=== PATIENT | male | born 1960 | race African-American/Black ===

== ENCOUNTER 2021-01-19 23:00 | HOS | payer OTHER, SELFPAY ==
[2021-01-19 22:45] VITALS: BP 104/70; PULSE 124; RESP 20; TEMP 36.6; O2SAT 96; BMI 22.6
[2021-01-19] MEDS: MORPHINE SULFATE (*CRX) 4 MG/ML INJ IV PUSH (23:49)
[2021-01-19] MEDS: MORPHINE SULFATE INJ (*CRX) 50 MG in SODIUM CHLORIDE 0.9% IV 95 ML IV CONT (23:50)
--- NOTE | 2021-01-19 23:58 | PC.NURSE ---
FENTANYL PATCH REMOVED FROM BACK AND DISPOSED OF APPROPRIATELY.
[2021-01-20] MEDS: LORazepam INJ (*CRX) 2 MG/ML VIAL 1 MG IV PUSH ×2 (05:42→10:47)
[2021-01-20 08:00] VITALS: BP 116/81; PULSE 108; RESP 16; TEMP 36.9; O2SAT 100
[2021-01-20 11:16] VITALS: O2SAT 99
--- NOTE | 2021-01-20 16:33 | PM.IMHP ---
H&P: HPI History of Present Illness Date/Time: 01/20/21 16:33 this unfortunate 60-year-old gentleman was diagnosed with lung cancer in December of 2018. He was not a surgical candidate. Underwent chemotherapy. He was admitted to hospice in December 2020. However he discharged himself from hospice and presented to another hospital for treatment. He did suffer a gastrointestinal bleed last month. His condition progressive he was unable to get out of bed on his own. He was living alone and unable to care for himself. Unable to take his medications correctly. Hospice was summoned to readmit him January 19. They found him lying on his couch with pills around him. He was moaning in pain and confused. He was incontinent of bowel and bladder. His PPS score was 30. He was admitted in the evening of January 19 for pain control. At home he was taking extended release morphine 60 mg as well as a fentanyl patch 50 micrograms/hour. He was started on morphine drip at 2 milligrams/hour with 4 mg every 2 hours as needed. He required 1 breakthrough dose of morphine last evening otherwise has had only 2 breakthrough doses of lorazepam for some restlessness this morning. No breakthrough medicine has been required this afternoon. Staff reports he does still grimace 1 touched but when left along his still comfortable. Six months ago he was continent with a fair appetite and living independently. PPS score was 70. He does have a history of alcohol and cocaine use. It is unclear how many days ago he stopped using these substances. He also smokes cigarettes daily. Chief Complaint: uncontrolled pain Review of Systems Review of Systems: ROS unobtainable: Yes unobtainable due to medical condition PMFSH Past Medical History Medical History (Updated 01/20/21 @ 17:13 by Zenon Justice MD) Alcohol use disorder Bipolar disorder Cocaine use disorder GI bleed 12/2020 Seizure Stage 4 malignant neoplasm of lung Tobacco use disorder Type 2 diabetes mellitus with hyperglycemia Family History Family History (Updated 01/20/21 @ 17:04 by Zenon Justice MD) Father No problems noted. Mother Hypertension Social History Social History Gender identity (if verbalized by the patient): Male Spiritual care concerns: No Meds Home Medications and Allergies Home Medications Medication Instructions Recorded Confirmed Type dexamethasone 0.75 mg PO TID 01/20/21 01/20/21 History fentanyl See Rx Instructions .ROUTE .COMPLEX 01/20/21 01/20/21 History levetiracetam 500 mg PO Q12H 01/20/21 01/20/21 History lorazepam 0.5 mg PO Q6H PRN 01/20/21 01/20/21 History megestrol 40 mg PO TID 01/20/21 01/20/21 History morphine 20 mg PO Q4H PRN 01/20/21 01/20/21 History morphine 60 mg PO BID 01/20/21 01/20/21 History omeprazole 20 mg PO QAM 01/20/21 01/20/21 History Allergies Allergy/AdvReac Type Severity Reaction Status Date / Time aspirin Allergy Unknown Verified 01/19/21 23:39 iodine Allergy Unknown Verified 01/19/21 23:39 Vital Signs Vital Signs - 24 hr 01/19/21 22:45 01/20/21 08:00 01/20/21 11:16 Temperature 97.8 F 98.5 F Pulse Rate 124 H 108 H Respiratory Rate 20 16 Blood Pressure 104/70 116/81 Pulse Oximetry 96 100 99 Exam Narrative: Exam Narrative: HEENT: PERRL but miotic and sluggish, sclerae nonicteric, pharyngeal mucosa pink and intact NECK: No JVD, adenopathy, or thyromegaly CHEST: Increased AP diameter with diffuse rhonchi and coarse breath sounds and prolonged expiratory phase HEART: NL S1/S2, regular, no murmur ABDOMEN: BS+, soft, nontender, no mass, no bruits EXTREMITIES: No cyanosis, edema. decreased pedal pulses. Cool extremities. NEUROLOGIC: CN intact and symmetric to inspection. MUSCULOSKELETAL: Tone symmetric. PSYCH: Sleeping. Arouses with grimace to light touch. No response to verbal stimuli. Assessment and Plan Assessment and plan (1) Stage 4 malignant neoplasm of lung:
[2021-01-20] MEDS: methylPREDNISolone SOD SUCC 125 MG VIAL 60 MG IV PUSH (17:44)
[2021-01-20 20:00] VITALS: O2SAT 94
[2021-01-20] MEDS: levETIRAcetam 500MG/NACL 100ML 500 MG/100 ML BAG 400 MG IVPB (21:57)
[2021-01-20 22:00] VITALS: BP 108/87; PULSE 103; RESP 22; TEMP 36.1; O2SAT 96
[2021-01-20] MEDS: MORPHINE SULFATE INJ (*CRX) 50 MG in SODIUM CHLORIDE 0.9% IV 95 ML IV CONT (22:32)
[2021-01-21] MEDS: LORazepam INJ (*CRX) 2 MG/ML VIAL 1 MG IV PUSH ×3 (01:24→10:14)
[2021-01-21 08:00] VITALS: BP 102/74; PULSE 96; RESP 12; TEMP 35.9; O2SAT 100
[2021-01-21] MEDS: MORPHINE SULFATE (*CRX) 4 MG/ML INJ IV PUSH (10:04)
[2021-01-21] MEDS: levETIRAcetam 500MG/NACL 100ML 500 MG/100 ML BAG 400 MG IVPB ×2 (10:12→20:44)
[2021-01-21] MEDS: methylPREDNISolone SOD SUCC 125 MG VIAL 60 MG IV PUSH ×2 (10:13→18:26)
--- NOTE | 2021-01-21 17:01 | PM.IMPN ---
Progress Note: A&P Assessment and Plan (1) Stage 4 malignant neoplasm of lung: Qualifiers: Laterality: unspecified laterality Qualified Code(s): C34.90 - Malignant neoplasm of unspecified part of unspecified bronchus or lung Code(s): C34.90 - Malignant neoplasm of unspecified part of unspecified bronchus or lung Status: Acute Assessment and Plan: Qualifies for general inpatient status on hospice due to uncontrolled pain that requires continuous IV infusion of morphine remainder palliative regimen as ordered, including lorazepam and IV steroids and IV levetiracetam (2) Type 2 diabetes mellitus with hyperglycemia: Qualifiers: Diabetes mellitus long term acute care registered nurse insulin use: with senior living use Qualified Code(s): E11.65 - Type 2 diabetes mellitus with hyperglycemia; Z79.4 - terminal worker (current) use of insulin Code(s): E11.65 - Type 2 diabetes mellitus with hyperglycemia Status: Acute (3) Bipolar disorder: Qualifiers: Active/Remission status: remission status unspecified Qualified Code(s): F31.9 - Bipolar disorder, unspecified Code(s): F31.9 - Bipolar disorder, unspecified Status: Acute (4) Tobacco use disorder: Code(s): F17.200 - Nicotine dependence, unspecified, uncomplicated Status: Acute (5) Seizure: Code(s): R56.9 - Unspecified convulsions Status: Acute (6) Alcohol use disorder: Status: Acute (7) Cocaine use disorder: Code(s): F14.10 - Cocaine abuse, uncomplicated Status: Acute Subjective Date/time seen: 01/21/21 17:01 Interval history: 01/21: Reviewed increased drip to 4mg/hr due to pain, restlessness. More comfortable since. Review of Systems Review of Systems: ROS unobtainable: Yes unobtainable due to medical condition Exam Narrative: Exam Narrative: HEENT: PERRL but miotic and sluggish, sclerae nonicteric, pharyngeal mucosa pink and intact NECK: No JVD, adenopathy, or thyromegaly CHEST: Increased AP diameter with diffuse rhonchi and coarse breath sounds and prolonged expiratory phase HEART: NL S1/S2, regular, no murmur ABDOMEN: BS+, soft, nontender, no mass, no bruits EXTREMITIES: No cyanosis, edema. decreased pedal pulses. Cool extremities. NEUROLOGIC: CN intact and symmetric to inspection. MUSCULOSKELETAL: Tone symmetric. PSYCH: Sleeping. Arouses with grimace to light touch. No response to verbal stimuli. Objective Data Vital Signs Vital Signs: Vital Signs - 24 hr 01/20/21 20:00 01/20/21 22:00 01/21/21 08:00 Temperature 97.0 F L 96.7 F L Pulse Rate 103 H 96 Respiratory Rate 22 H 12 Blood Pressure 108/87 102/74 Pulse Oximetry 94 96 100 Intake/Output Intake/Output: Intake & Output 01/18/21 01/19/21 01/20/21 01/21/21 23:59 23:59 23:59 23:59 Intake Total 200 0 Output Total 0 0 Balance 200 0 Meds/Results Medications: Active Medications Generic Name Dose Route Start Last Admin Trade Name Freq PRN Reason Stop Dose Admin Acetaminophen 650 mg 01/19/21 23:30 Acetaminophen 650 Mg Suppository RECTAL Q4H PRN Fever Artificial Tears 1 drop 01/20/21 09:00 01/21/21 10:13 Artificial Tears Op Soln 15 Ml Bottle EACH EYE 1 drop TID ANKUSH Administration Artificial Tears 1 drop 01/19/21 23:31 Artificial Tears Op Soln 15 Ml Bottle EACH EYE Q4H PRN Dry Eye(s) Bisacodyl 10 mg 01/19/21 23:31 Bisacodyl 10 Mg Suppository RECTAL DAILY PRN Constipation Glycopyrrolate 0.1 mg 01/19/21 23:32 Glycopyrrolate Inj (*Sp) 0.2 Mg/Ml Vial IV PUSH Q4H PRN INCREASED SECRETIONS Morphine Sulfate 50 mg/ Sodium 100 mls @ 8 mls/hr 01/19/21 23:30 01/21/21 12:57 Chloride IV CONT 4 mg/hr .[id number] ANKUSH 8 mls/hr Infusion 4 MG/HR Levetiracetam 500 mg in 100 mls @ 400 mls/hr 01/20/21 21:00 01/21/21 10:12 Keppra Iv IVPB 400 mls/hr Q12HR ANKUSH Administration Lorazepam 1 mg 01/19/21 23:30 0
[2021-01-21] MEDS: MORPHINE SULFATE INJ (*CRX) 50 MG in SODIUM CHLORIDE 0.9% IV 95 ML 8 MG IV CONT (18:42)
[2021-01-21 20:43] VITALS: BP 145/70; PULSE 105; RESP 15; TEMP 36.5; O2SAT 100
[2021-01-22] MEDS: LORazepam INJ (*CRX) 2 MG/ML VIAL 1 MG IV PUSH ×2 (01:50→07:44)
[2021-01-22] MEDS: MORPHINE SULFATE INJ (*CRX) 50 MG in SODIUM CHLORIDE 0.9% IV 95 ML 8 MG IV CONT ×2 (07:46→21:46)
[2021-01-22] MEDS: levETIRAcetam 500MG/NACL 100ML 500 MG/100 ML BAG 400 MG IVPB ×2 (08:03→22:23)
[2021-01-22] MEDS: methylPREDNISolone SOD SUCC 125 MG VIAL 60 MG IV PUSH ×2 (08:04→17:31)
[2021-01-22 11:26] VITALS: O2SAT 98
[2021-01-22 14:00] VITALS: BP 120/86; PULSE 92; RESP 24; TEMP 36.2; O2SAT 99
[2021-01-22 14:05] VITALS: O2SAT 100
--- NOTE | 2021-01-22 18:55 | PM.IMPN ---
Progress Note: A&P Assessment and Plan (1) Stage 4 malignant neoplasm of lung: Qualifiers: Laterality: unspecified laterality Qualified Code(s): C34.90 - Malignant neoplasm of unspecified part of unspecified bronchus or lung Code(s): C34.90 - Malignant neoplasm of unspecified part of unspecified bronchus or lung Status: Acute Assessment and Plan: Qualifies for general inpatient status on hospice due to uncontrolled pain that requires continuous IV infusion of morphine remainder palliative regimen as ordered, including lorazepam and IV steroids and IV levetiracetam (2) Type 2 diabetes mellitus with hyperglycemia: Qualifiers: Diabetes mellitus computer terminal operator insulin use: with senior care use Qualified Code(s): E11.65 - Type 2 diabetes mellitus with hyperglycemia; Z79.4 - termite renewal inspector (current) use of insulin Code(s): E11.65 - Type 2 diabetes mellitus with hyperglycemia Status: Acute (3) Bipolar disorder: Qualifiers: Active/Remission status: remission status unspecified Qualified Code(s): F31.9 - Bipolar disorder, unspecified Code(s): F31.9 - Bipolar disorder, unspecified Status: Acute (4) Tobacco use disorder: Code(s): F17.200 - Nicotine dependence, unspecified, uncomplicated Status: Acute (5) Seizure: Code(s): R56.9 - Unspecified convulsions Status: Acute (6) Alcohol use disorder: Status: Acute (7) Cocaine use disorder: Code(s): F14.10 - Cocaine abuse, uncomplicated Status: Acute Subjective Date/time seen: 01/22/21 18:55 Interval history: 01/22: Remains comfortable on morphine 4mg/hr. Review of Systems Review of Systems: ROS unobtainable: Yes unobtainable due to medical condition Exam Narrative: Exam Narrative: HEENT: PERRL but miotic and sluggish, sclerae nonicteric, pharyngeal mucosa pink and intact NECK: No JVD, adenopathy, or thyromegaly CHEST: Increased AP diameter with diffuse rhonchi and coarse breath sounds and prolonged expiratory phase HEART: NL S1/S2, regular, no murmur ABDOMEN: BS+, soft, nontender, no mass, no bruits EXTREMITIES: No cyanosis, edema. decreased pedal pulses. Cool extremities. NEUROLOGIC: CN intact and symmetric to inspection. MUSCULOSKELETAL: Tone symmetric. PSYCH: Sleeping. Arouses with grimace to light touch. No response to verbal stimuli. Objective Data Vital Signs Vital Signs: Vital Signs - 24 hr 01/21/21 20:43 01/22/21 11:26 01/22/21 14:00 Temperature 97.7 F 97.2 F L Pulse Rate 105 H 92 Respiratory Rate 15 24 H Blood Pressure 145/70 H 120/86 Pulse Oximetry 100 98 99 01/22/21 14:05 Temperature Pulse Rate Respiratory Rate Blood Pressure Pulse Oximetry 100 Intake/Output Intake/Output: Intake & Output 01/19/21 01/20/21 01/21/21 01/22/21 23:59 23:59 23:59 23:59 Intake Total 200 300 200 Output Total 0 0 Balance 200 300 200 Meds/Results Medications: Active Medications Generic Name Dose Route Start Last Admin Trade Name Freq PRN Reason Stop Dose Admin Acetaminophen 650 mg 01/19/21 23:30 Acetaminophen 650 Mg Suppository RECTAL Q4H PRN Fever Artificial Tears 1 drop 01/20/21 09:00 01/22/21 17:31 Artificial Tears Op Soln 15 Ml Bottle EACH EYE 1 drop TID ANKUSH Administration Artificial Tears 1 drop 01/19/21 23:31 Artificial Tears Op Soln 15 Ml Bottle EACH EYE Q4H PRN Dry Eye(s) Bisacodyl 10 mg 01/19/21 23:31 Bisacodyl 10 Mg Suppository RECTAL DAILY PRN Constipation Glycopyrrolate 0.1 mg 01/19/21 23:32 Glycopyrrolate Inj (*Sp) 0.2 Mg/Ml Vial IV PUSH Q4H PRN INCREASED SECRETIONS Morphine Sulfate 50 mg/ Sodium 100 mls @ 8 mls/hr 01/19/21 23:30 01/22/21 07:46 Chloride IV CONT 4 mg/hr .[id number] ANKUSH 8 mls/hr Administration 4 MG/HR Levetiracetam 500 mg in 100 mls @ 400 mls/hr 01/20/21 21:00 01/22/21 08:18 Keppra Iv IVPB In
[2021-01-22 21:16] VITALS: PULSE 96; O2SAT 91
[2021-01-23] VITALS: BP 112/77; PULSE 89; RESP 12; TEMP 35.5; O2SAT 94
[2021-01-23 08:00] VITALS: PULSE 89; RESP 12; O2SAT 94
[2021-01-23] MEDS: methylPREDNISolone SOD SUCC 125 MG VIAL 60 MG IV PUSH (08:31)
[2021-01-23] MEDS: levETIRAcetam 500MG/NACL 100ML 500 MG/100 ML BAG 400 MG IVPB (08:31)
[2021-01-23] MEDS: MORPHINE SULFATE INJ (*CRX) 50 MG in SODIUM CHLORIDE 0.9% IV 95 ML 8 MG IV CONT (10:50)
[2021-01-23] MEDS: GLYCOPYRROLATE INJ (*SP) 0.2 MG/ML VIAL 0.1 MG IV PUSH (10:50)
[2021-01-23 14:00] VITALS: BP 144/88; PULSE 116; RESP 14; TEMP 36.4; O2SAT 81
--- NOTE | 2021-01-23 15:42 | PM.IMPN ---
Progress Note: A&P Assessment and Plan (1) Stage 4 malignant neoplasm of lung: Qualifiers: Laterality: unspecified laterality Qualified Code(s): C34.90 - Malignant neoplasm of unspecified part of unspecified bronchus or lung Code(s): C34.90 - Malignant neoplasm of unspecified part of unspecified bronchus or lung Status: Acute Assessment and Plan: Qualifies for general inpatient status on hospice due to uncontrolled pain that requires continuous IV infusion of morphine remainder palliative regimen as ordered, including lorazepam and IV steroids and IV levetiracetam 01/21 morphine increased to 4mg/hr 01/23 morhpine increased to 8mg/hr (2) Type 2 diabetes mellitus with hyperglycemia: Qualifiers: Diabetes mellitus intermediate insulin use: with intermediate use Qualified Code(s): E11.65 - Type 2 diabetes mellitus with hyperglycemia; Z79.4 - patient appointment coordinator (current) use of insulin Code(s): E11.65 - Type 2 diabetes mellitus with hyperglycemia Status: Acute (3) Bipolar disorder: Qualifiers: Active/Remission status: remission status unspecified Qualified Code(s): F31.9 - Bipolar disorder, unspecified Code(s): F31.9 - Bipolar disorder, unspecified Status: Acute (4) Tobacco use disorder: Code(s): F17.200 - Nicotine dependence, unspecified, uncomplicated Status: Acute (5) Seizure: Code(s): R56.9 - Unspecified convulsions Status: Acute (6) Alcohol use disorder: Status: Acute (7) Cocaine use disorder: Code(s): F14.10 - Cocaine abuse, uncomplicated Status: Acute Subjective Date/time seen: 01/23/21 15:42 Interval history: 01/23: Sudden increased restlessness, dyspnea. Thrashing about. Coughing up thick secretions. Review of Systems Review of Systems: ROS unobtainable: Yes unobtainable due to medical condition Exam Narrative: Exam Narrative: HEENT: PERRL but miotic and sluggish, sclerae nonicteric, pharyngeal mucosa pink and intact NECK: No JVD, adenopathy, or thyromegaly CHEST: Increased AP diameter with diffuse rhonchi and coarse breath sounds and prolonged expiratory phase HEART: NL S1/S2, regular, no murmur ABDOMEN: BS+, soft, nontender, no mass, no bruits EXTREMITIES: No cyanosis, edema. decreased pedal pulses. Cool extremities. NEUROLOGIC: CN intact and symmetric to inspection. MUSCULOSKELETAL: Tone symmetric. PSYCH: ALERT AND AGITATED, THRASHING ABOUT AND MOANING Objective Data Vital Signs Vital Signs: Vital Signs - 24 hr 01/22/21 21:16 01/23/21 00:00 01/23/21 08:00 Temperature 96 F L Pulse Rate 96 89 89 Respiratory Rate 12 12 Blood Pressure 112/77 Pulse Oximetry 91 94 94 01/23/21 14:00 Temperature 97.5 F L Pulse Rate 116 H Respiratory Rate 14 Blood Pressure 144/88 H Pulse Oximetry 81 L Intake/Output Intake/Output: Intake & Output 01/20/21 01/21/21 01/22/21 01/23/21 23:59 23:59 23:59 23:59 Intake Total 200 300 400 100 Output Total 0 0 Balance 200 300 400 100 Meds/Results Medications: Active Medications Generic Name Dose Route Start Last Admin Trade Name Freq PRN Reason Stop Dose Admin Acetaminophen 650 mg 01/19/21 23:30 Acetaminophen 650 Mg Suppository RECTAL Q4H PRN Fever Artificial Tears 1 drop 01/20/21 09:00 01/23/21 12:55 Artificial Tears Op Soln 15 Ml Bottle EACH EYE 1 drop TID ANKUSH Administration Artificial Tears 1 drop 01/19/21 23:31 Artificial Tears Op Soln 15 Ml Bottle EACH EYE Q4H PRN Dry Eye(s) Bisacodyl 10 mg 01/19/21 23:31 Bisacodyl 10 Mg Suppository RECTAL DAILY PRN Constipation Glycopyrrolate 0.1 mg 01/19/21 23:32 01/23/21 10:50 Glycopyrrolate Inj (*Sp) 0.2 Mg/Ml Vial IV PUSH 0.1 mg Q4H PRN Administration INCREASED SECRETIONS Morphine Sulfate 50 mg/ Sodium 100 mls @ 8 mls/hr 01/19/21 23:30 01/23/21 10:50 Chloride IV CONT 4 mg/hr .[id number] ANKUSH 8 mls/hr
[2021-01-23] MEDS: LORazepam INJ (*CRX) 2 MG/ML VIAL 1 MG IV PUSH (15:48)
[2021-01-23] MEDS: MORPHINE SULFATE (*CRX) 4 MG/ML INJ IV PUSH (15:48)
[2021-01-23] MEDS: PHENobarbitaL sodium (*CRX) 130 MG/ML VIAL 120 MG IV PUSH (16:26)
--- NOTE | 2021-01-25 10:23 | PM.DDS ---
Discharge Sum: Prov Provider Primary care physician: ENVIRONMENTAL ENGINEERING MANAGER PHYSICIAN Admitting provider: Zenon Justice MD Discharge Sum: Diag Contributing Factors (1) Stage 4 malignant neoplasm of lung: (2) Type 2 diabetes mellitus with hyperglycemia: (3) Bipolar disorder: (4) Tobacco use disorder: (5) Seizure: (6) Alcohol use disorder: (7) Cocaine use disorder: Discharge Sum: Summary Date and Time Date of admission: 01/19/21 23:00 Summary Details: New patient admitted to hospice was sent for inpatient care due to pain that was not manageable at home. He was dyspneic restless. Symptoms initially responded to morphine drip at 2 mg per hour that was increased to 4 milligrams/hour. He remained peaceful of until the day of . He became suddenly agitated and anxious. Morphine bolused increase trip and addition of phenobarbital ameliorated his symptoms. He abruptly. Additional Data Attending physician: Zenon Justice MD
== END 2021-01-23 16:40 | disposition expired | DRG 951 ==
PROVIDERS: Admitting Provider Internal Medicine; Visit Provider Internal Medicine
DX: Z51.5 Encounter for palliative care (principal); C34.90 Malignant neoplasm of unspecified part of unspecified bronchus or lung; E11.65 Type 2 diabetes mellitus with hyperglycemia; Z79.4 Long term (current) use of insulin; F31.9 Bipolar disorder, unspecified; F17.210 Nicotine dependence, cigarettes, uncomplicated; R56.9 Unspecified convulsions; F10.10 Alcohol abuse, uncomplicated; F14.10 Cocaine abuse, uncomplicated
CPT/HCPCS: A9270; J1953; J2060; J2270; J2560; J2930